=== PATIENT | female | born 1970 | race Caucasian/White ===

== ENCOUNTER 2017-05-16 23:46 | Emergency (ER) | payer BC ==
[2017-05-17 00:20] LABS: BASO % 0.3 % (0-6); EOS % 2.4 % (0-6); GRAN % 62.1 % (47-80); HEMATOCRIT 41.8 % (35.0-47.0); HEMOGLOBIN 13.8 gm/dl (11.6-16.0); MEAN CELL VOLUME 90.5 fl (81-97); MEAN CORPUSCULAR HEMOGLOBIN 29.9 pg (27-33); MEAN PLATELET VOLUME 10.4 fl (7.4-10.4); MONO % 5.2 % (0-9); PLATELET COUNT 201 K/uL (130-400); RED BLOOD COUNT 4.62 M/uL (3.80-5.40); RED CELL DISTRIBUTION WIDTH 13.6 % (11.5-14.5); WHITE BLOOD COUNT W/O DIFF 9.2 K/uL (4.2-12.2)
[2017-05-17] MEDS: 0.9 % SODIUM CHLORIDE 1,000 ML BAG IV ONE (00:23)
[2017-05-17] MEDS: ONDANSETRON HCL IV 4 MG/2 ML VIAL IV ONE (00:24)
[2017-05-17] MEDS: HYDROMORPHONE HCL 1MG/ML **SYRINGE IVP ONE ×2 (00:25→02:27)
--- NOTE | 2017-05-17 00:29 | Emergency Department Record ---
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 pt has nausea but no v/c/d MD Complaint: Abdominal pain Onset/Timin -: Minutes(s) Location: Epigastric Radiation: Back Quality: Sharp Improves With: Nothing Worsens With: Nothing Associated Symptoms: Denies other symptoms - Related Data Patient : No Previous Rx's Medication Instructions Recorded Hydrocodone/Acetaminophen [[place] 1 each PO QID #10 tablet 05/17/17 5-325 Tablet] Allergies Allergy/AdvReac Type Severity Reaction Status Date / Time No Known Drug Allergies Allergy Verified 05/16/17 23:51 Travel Screening - Travel/Exposure Within Last 30 Days Have you traveled within the last 30 days?: No - Travel Symptoms Symptom Screening: None Review of Systems Reviewed: No additional complaints except as noted below Constitutional: Reports: As per HPI. Denies: Chills, Fever, Malaise, Night sweats, Weakness, Weight change Eyes: Reports: As per HPI. Denies: Eye discharge, Eye pain, Photophobia, Vision change ENT: Reports: As per HPI. Denies: Congestion, Dental pain, Ear pain, Epistaxis , Hearing loss, Throat pain Respiratory: Reports: As per HPI. Denies: Cough, Dyspnea, Hemoptysis, Stridor, Wheezes Cardiovascular: Reports: As per HPI. Denies: Arrhythmia, Chest pain, Dyspnea on exertion, Edema, Murmurs, Orthopnea, Palpitations, Paroxysmal nocturnal dyspnea, Rheumatic Fever, Syncope Endocrine: Reports: As per HPI. Denies: Fatigue, Heat or cold intolerance, Polydipsia, Polyuria Gastrointestinal: Reports: As per HPI. Denies: Abdominal pain, Constipation, Diarrhea, Hematemesis, Hematochezia, Melena, Nausea, Vomiting Genitourinary: Reports: As per HPI. Denies: Abnormal menses, Discharge, Dyspareunia, Dysuria, Frequency, Hematuria, Incontinence, Retention, Urgency Musculoskeletal: Reports: As per HPI. Denies: Arthralgia, Back pain, Gout, Joint swelling, Myalgia, Neck pain Skin: Reports: As per HPI. Denies: Bruising, Change in color, Change in hair/ nails, Lesions, Pruritus, Rash Neurological: Reports: As per HPI. Denies: Abnormal gait, Confusion, Headache, Numbness, Paresthesias, Seizure, Tingling, Tremors, Vertigo, Weakness Psychiatric: Reports: As per HPI. Denies: Anxiety, Auditory hallucinations, Depression, Homicidal thoughts, Suicidal thoughts, Visual hallucinations Hematological/Lymphatic: Reports: As per HPI. Denies: Anemia, Blood Clots, Easy bleeding, Easy bruising, Swollen glands Past Medical History - SOCIAL HISTORY Smoking Status: Never smoker - RESPIRATORY Hx Respiratory Disorders: No - CARDIOVASCULAR Hx Cardio Disorders: No - NEURO Hx Neuro Disorders: No - GI Hx GI Disorders: No - Hx Genitourinary Disorders: No - ENDOCRINE Hx Endocrine Disorders: No - MUSCULOSKELETAL Hx Musculoskeletal Disorders: No - PSYCH Hx Psych Problems: No - HEMATOLOGY/ONCOLOGY Hx Hematology/Oncology Disorders: No Family Medical History Any Significant Family History?: Yes Hx Heart Disease: Father Physical Exam - General General Appearance: Alert, Oriented x3, Cooperative, Moderate distress - Head Head exam: Normal inspection - Eye Eye exam: Normal appearance, PERRL, EOMI Pupils: Normal accommodation - ENT ENT exam: Normal exam, Mucous membranes moist, Normal external ear exam, Normal orophraynx Ear exam: Normal external inspection. negative: External canal tenderness Nasal Exam: Normal inspection. negative: Discharge, Sinus tenderness Mouth exam: Normal external inspection, Tongue normal Teeth exam: Normal inspection. negative: Dental caries Throat exam: Normal inspection. negative: Tonsillar erythema, Tonsillar exudate - Neck Neck exam: Normal inspection, Full ROM. negative: Tenderness - Respiratory Respiratory exam: Normal lung sounds bilaterally. negative: Respiratory distress - Cardiovascular Cardiovascular Exam: Regular rate, Normal rhythm, Normal heart sounds - GI/Abdominal GI/Abdominal exam: Soft, Normal bowel sounds, Tenderness - Rectal Rectal exam: Deferred - exam: Deferred - Extremities Extremities exam: Normal inspection, Full ROM, Normal capillary refill. negative: Tenderness - Back Back exam: Reports: Normal inspection, Full ROM. Denies: Muscle spasm, Rash noted, Tenderness - Neurological Neurological exam: Alert, CN II-XII intact, Normal gait, Oriented X3 - Psychiatric Psychiatric exam: Normal affect, Normal mood - Skin Skin exam: Dry, Intact, Normal color, Warm Course Vital Signs 05/16/17 05/16/17 23:50 23:52 Temperature 98.0 F Pulse Rate 65 Respiratory 18 Rate Blood Pressure 112/78 [Left Arm] Pulse Ox 100 - Reevaluation(s) Reevaluation #1: 05/17/17 02:22 pt feels better. she does not want to be hospitalized and wants to try it at home. pt was told she may return at any time and pt was told to return for ultrasound thursday. Medical Decision Making - Lab Data Result diagrams: 05/17/17 00:10 05/17/17 00:10 Lab Results 05/17/17 Range/Units 00:10 WBC 9.2 (4.2-12.2) K/uL RBC 4.62 (3.80-5.40) M/uL Hgb 13.8 (11.6-16.0) gm/dl Hct 41.8 (35.0-47.0) % MCV 90.5 (81-97) fl MCH 29.9 (27-33) pg MCHC 33.0 (32-36) g/dl RDW 13.6 (11.5-14.5) % Plt Count 201 (130-400) K/uL MPV 10.4 (7.4-10.4) fl Gran % 62.1 (47-80) % Lymphocytes % 30.0 (16-45) % Monocytes % 5.2 (0-9) % Eosinophils % 2.4 (0-6) % Basophils % 0.3 (0-6) % Disposition Disposition: Discharge Clinical Impression: Pancreatitis Qualifiers: Chronicity: acute Pancreatitis type: unspecified pancreatitis type Acute pancreatitis complication: unspecified Qualified Code(s): K85.90 - Acute pancreatitis without necrosis or infection, unspecified Disposition: Home, Self-Care Instructions: Pancreatitis (ED) Additional Instructions: follow up thursday at 7:30 am. nothing by mouth after midnight Thursday night. return sooner if worse. Prescriptions: Hydrocodone/Acetaminophen [[place] 5-325 Tablet] 1 each PO QID #10 tablet Forms: Patient Portal Access, Return to Work/School Quality - Quality Measures Quality Measures: N/A - Blood Pressure Screening Does Patient Have Any of the Following: No Blood Pressure Classification: Normal BP Reading Systolic Measurement: 117 Diastolic Measurement: 68 Screening for High Blood Pressure: < Normal BP, F/U Not Required > [G2805]
[2017-05-17 00:45] LABS: ALB/GLOB RATIO 1.4 (1.1-1.8); ALBUMIN 3.9 g/dL (4.0-5.0); ALKALINE PHOSPHATASE 90 U/L (35-104); ALT/SGPT 16 U/L (<33); AST/SGOT 23 U/L (10.0-35.0); BLOOD UREA NITROGEN 10 mg/dL (6-20); CREATININE 0.7 mg/dL (0.5-0.9); EST GLOMERULAR FILTRATION RATE > 60 mL/min; GLUCOSE,RANDOM 120 mg/dL (74-109); TOTAL PROTEIN 6.6 g/dL (6.6-8.7)
[2017-05-17 00:59] LABS: LIPASE 364 U/L (13-60)
[2017-05-17 02:04] LABS: URINE APPEARANCE CLEAR; URINE BILIRUBIN NEGATIVE (NEGATIVE); URINE BLOOD NEGATIVE (NEGATIVE); URINE COLOR YELLOW; URINE GLUCOSE (UA) NEGATIVE (NEGATIVE); URINE KETONE TRACE (NEGATIVE); URINE LEUKOCYTE ESTERASE NEGATIVE (NEGATIVE); URINE NITRITE NEGATIVE (NEGATIVE); URINE PROTEIN TRACE (NEGATIVE)
[2017-05-17] MEDS: HYDROCODONE/APAP 5/325MG TABLET PO ONE (02:34)
--- NOTE | 2017-05-17 13:03 | CT SCAN REPORT ---
EXAM: CT SCAN ABDOMEN/PELVIS W CONTRAST HISTORY: ABDOMINAL PAIN/EPIGASTRIC PAIN. COMPARISON: 06/02/13. TECHNIQUE: Routine postcontrast CT images of the abdomen and pelvis were obtained. Amount and type of IV contrast in the medical record. FINDINGS: Visualized lung bases unremarkable. There are a few tiny stones within the gallbladder. No biliary ductal dilation. Periportal edema noted within the liver, which is otherwise unremarkable. There is mild peripancreatic edematous change suggesting acute pancreatitis. Spleen, adrenals, and kidneys are unremarkable. There is a mild hiatal hernia. 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 Note is made of a duodenal diverticulum emanating off the medial aspect of the second portion of the duodenum. Bowel is normal in caliber. Appendix has a normal appearance. Mild volume of stool within the colon. Bladder unremarkable. There are small ovarian cysts bilaterally. No abdominal or pelvic lymphadenopathy. Aorta enhances normally with contrast. No ascites. Abdominal wall soft tissues are unremarkable. No acute osseous abnormality. There is lumbar spondylosis with degenerative disc disease, most pronounced at L5-S1, and moderate facet hypertrophy L4-5 and L5-S1. IMPRESSION: 1. PERIPANCREATIC INFLAMMATORY CHANGE FAVORING ACUTE PANCREATITIS. ALTERNATIVELY, THERE IS A MODERATE DUODENAL DIVERTICULUM WITHIN THIS REGION AND DUODENITIS POSSIBLE, THOUGH FELT TO BE LESS LIKELY. 2. SUGGESTION OF CHOLELITHIASIS. 3. SMALL HIATAL HERNIA. JOB NUMBER: [id number] [facility]
== END 2017-05-17 02:58 | disposition home or self-care (01) ==
LOC: ER 23:46
DX: K85.90 Acute pancreatitis without necrosis or infection, unspecified (principal)
CPT/HCPCS: 99284 ×2; 96376; 96374; 96375; 83605; 83690; 85025; 80053; 81003; 74177; Q9967; J2405; J1170; J7030

== ENCOUNTER 2017-05-18 07:23 | Emergency (ER) | payer BC ==
[2017-05-18] MEDS ORDERED: 0.9 % SODIUM CHLORIDE 1,000 ML BAG IV ONE (07:31)
--- NOTE | 2017-05-18 07:37 | Emergency Department Record ---
History of Present Illness - General Stated Complaint: ULTRASOUND Time Seen by Provider: 05/18/17 07:31 Source: Patient, Family Mode of Arrival: Ambulatory Limitations: No limitations - History of Present Illness Initial Comments: 46 yo female returns to the ED for evaluation for abdominal pain. The patient was in the ED May 17 for upper abdominal pain. A CT scan at that time was positive for mild peripancreatic edema with DDX of pancratitis or duodenitis. Questionable gall stones at that time. Her Lipase was elevated then at 364. She states her pain is now 1/10. She has little appetite. Her pain is well controlled but she is apprehensive about eating. She had a gastric sleeve in [address] [facility] [address] Dia. She had a prior hysterectomy. MD Complaint: Abdominal pain -: Days(s) (2) Location: Epigastric, RUQ Migration to: RUQ Severity: Mild Severity scale (1-10): 1 Quality: Aching Consistency: Intermittent Improves With: Other (Not eating) Worsens With: Eating Associated Symptoms: Anorexia - Related Data Patient : No Previous Rx's Medication Instructions Recorded Hydrocodone/Acetaminophen [[place] 1 each PO QID #10 tablet 05/17/17 5-325 Tablet] Allergies Allergy/AdvReac Type Severity Reaction Status Date / Time No Known Drug Allergies Allergy Verified 05/16/17 23:51 Review of Systems Constitutional: Denies: Chills, Fever, Malaise, Weakness Eyes: Denies: Eye discharge ENT: Denies: Congestion, Throat pain Respiratory: Denies: Cough, Dyspnea, Hemoptysis, Wheezes Cardiovascular: Denies: Chest pain, Syncope Endocrine: Denies: Fatigue Gastrointestinal: Reports: Abdominal pain, Vomiting. Denies: Diarrhea Genitourinary: Denies: Dysuria, Urgency Musculoskeletal: Denies: Arthralgia, Back pain, Myalgia, Neck pain Skin: Denies: Bruising, Change in color, Rash Neurological: Denies: Confusion, Headache, Weakness Psychiatric: Denies: Anxiety Hematological/Lymphatic: Denies: Blood Clots, Easy bleeding, Easy bruising, Swollen glands Past Medical History - SOCIAL HISTORY Smoking Status: Never smoker - RESPIRATORY Hx Respiratory Disorders: No - CARDIOVASCULAR Hx Cardio Disorders: No - NEURO Hx Neuro Disorders: No - GI Hx GI Disorders: No - Hx Genitourinary Disorders: No - ENDOCRINE Hx Endocrine Disorders: No - MUSCULOSKELETAL Hx Musculoskeletal Disorders: No - PSYCH Hx Psych Problems: No - HEMATOLOGY/ONCOLOGY Hx Hematology/Oncology Disorders: No Family Medical History Hx Heart Disease: Father Physical Exam - General General Appearance: Alert, Oriented x3, Cooperative, No acute distress Limitations: No limitations - Head Head exam: Normal inspection - Eye Eye exam: Normal appearance - ENT ENT exam: Normal exam Ear exam: Normal external inspection Nasal Exam: Normal inspection Mouth exam: Normal external inspection - Neck Neck exam: Normal inspection, Full ROM. negative: Tenderness - Respiratory Respiratory exam: Normal lung sounds bilaterally. negative: Respiratory distress - Cardiovascular Cardiovascular Exam: Regular rate, Normal rhythm, Normal heart sounds - GI/Abdominal GI/Abdominal exam: Soft, Normal bowel sounds. negative: Distended, Guarding, Rebound, Rigid - Rectal Rectal exam: Deferred - exam: Deferred - Extremities Extremities exam: Normal inspection, Full ROM, Normal capillary refill. negative: Tenderness - Back Back exam: Reports: Normal inspection, Full ROM. Denies: Muscle spasm, Rash noted, Tenderness - Neurological Neurological exam: Alert, Normal gait, Oriented X3 - Psychiatric Psychiatric exam: Normal affect, Normal mood - Skin Skin exam: Dry, Intact, Normal color, Warm Course - Reevaluation(s) Reevaluation #1: EMR reviewed from prior visit 05/18/17 07:38 05/18/17 08:29 The US was read as cholelithiasis without US evidence for acute cholecystitis. No bilary dilatation. 05/18/17 08:31 The CBC is normal at this time without acute changes The Lipase is 177 down from 364 05/18/17 08:33 The AST was 32, ALT 55, AlkPhos 76 with normal Bilirubin. 05/18/17 09:[address] Schwartz of general surgery We discussed the initial work up as well as today's tests The patient has very well controlled pain No acute changes in the labs with improved labs. He recommends follow up in one week to ensure the acute pancreatitis continues to calm down I discussed at length with the patient and mother diet, reasons to return and follow up plan with Dr Schwartz. A Consult for follow up was placed with Dr Schwartz 05/18/17 09:03 The patient requests the diagnosis be placed on her work release note as it is required by her company. Medical Decision Making - Lab Data Result diagrams: 05/18/17 07:45 05/18/17 07:45 Disposition Disposition: Discharge Clinical Impression: Gall stones Disposition: Home, Self-Care Condition: (1) Good Instructions: Biliary Colic (ED), Gallstones (ED) Additional Instructions: You will be called today for a follow up appointment with Dr Schwartz Immediately return to the ED if you have any pain, fever, vomiting Very low fat diet until you are seen by Dr Schwartz Referrals: Eliud Schwartz [DOCTOR OF OSTEOPATH] - [facility] Specialty Clinics [Provider Group] Forms: Patient Portal Access Time of Disposition: 09:00 Quality - Quality Measures Quality Measures: N/A - Blood Pressure Screening Does Patient Have Any of the Following: No Blood Pressure Classification: Pre-Hypertensive BP Reading Systolic Measurement: 123 Diastolic Measurement: 80 Screening for High Blood Pressure: < Pre-Hypertensive BP, F/U Documented > [ G8950] Pre-Hypertensive Follow-up Interventions: Referral to alternative/primary care provider.
[2017-05-18 07:55] LABS: BASO % 0.3 % (0-6); EOS % 3.9 % (0-6); GRAN % 73.4 % (47-80); HEMATOCRIT 39.3 % (35.0-47.0); LYMPH % 18.5 % (16-45); MEAN CELL VOLUME 90.3 fl (81-97); MEAN CORPUSCULAR HEMOGLOBIN 29.9 pg (27-33); MEAN CORPUSCULAR HGB CONC 33.1 g/dl (32-36); MEAN PLATELET VOLUME 9.9 fl (7.4-10.4); MONO % 3.9 % (0-9); PLATELET COUNT 157 K/uL (130-400); RED BLOOD COUNT 4.35 M/uL (3.80-5.40); RED CELL DISTRIBUTION WIDTH 13.4 % (11.5-14.5); WHITE BLOOD COUNT W/O DIFF 6.5 K/uL (4.2-12.2)
[2017-05-18 08:08] LABS: INR 0.94; PARTIAL THROMBOPLASTIN TIME 27.1 SECONDS (24.5-39.1); PROTHROMBIN TIME (PATIENT) 10.2 SECONDS (9.5-12.1)
[2017-05-18 08:16] LABS: BLOOD UREA NITROGEN 7 mg/dL (6-20); EST GLOMERULAR FILTRATION RATE > 60 mL/min; GLUCOSE,RANDOM 106 mg/dL (74-109)
[2017-05-18 08:31] LABS: ALB/GLOB RATIO 1.4 (1.1-1.8); ALBUMIN 3.6 g/dL (4.0-5.0); ALKALINE PHOSPHATASE 76 U/L (35-104); ALT/SGPT 55 U/L (<33); AST/SGOT 32 U/L (10.0-35.0); CREATININE 0.6 mg/dL (0.5-0.9); TOTAL PROTEIN 6.1 g/dL (6.6-8.7)
[2017-05-18 08:32] LABS: LIPASE 177 U/L (13-60)
--- NOTE | 2017-05-18 09:06 | ULTRASOUND REPORT ---
EXAM: ABDOMEN ULTRASOUND HISTORY: ACUTE RIGHT UPPER QUADRANT ABDOMINAL PAIN. TECHNIQUE: Real-time alex scale sonographic imaging of the abdomen was performed. Comparison: Abdomen CT 05/17/17. FINDINGS: The liver and spleen are not enlarged and appear homogeneous. No biliary dilatation. The common duct measures 1.4 mm in diameter, within normal limits. Multiple small mobile echogenic gallstones in the gallbladder. No gallbladder wall thickening or pericholecystic fluid. Sonographic Schultz's sign is negative. The kidneys are normal without mass, calculi, or hydronephrosis. The right kidney measures 11.8 x 3.9 x 4.7 cm and the left kidney measures 10.6 x 4.4 x 5.1 cm. The tail of the pancreas is not seen due to bowel gas. The remaining pancreas, abdominal aorta and IVC are unremarkable. IMPRESSION: CHOLELITHIASIS WITHOUT SONOGRAPHIC EVIDENCE OF ACUTE CHOLECYSTITIS. NO BILIARY DILATATION. JOB NUMBER: [id number] [facility]
== END 2017-05-18 09:14 | disposition home or self-care (01) ==
LOC: ER 07:23
DX: K80.20 Calculus of gallbladder without cholecystitis without obstruction (principal); R10.11 Right upper quadrant pain
CPT/HCPCS: 76700; 80053; 83690; 85025; 85610; 85730; 99284; J7030

== ENCOUNTER 2017-05-30 13:50 | Emergency (ER) | payer BC ==
[2017-05-30] MEDS ORDERED: ONDANSETRON HCL IV 4 MG/2 ML VIAL IV ONE (13:56)
[2017-05-30] MEDS ORDERED: 0.9 % SODIUM CHLORIDE 1,000 ML BAG IV ONE ×2 (13:56→14:53)
[2017-05-30] MEDS ORDERED: HYDROMORPHONE HCL 1MG/ML **SYRINGE IVP ONE (13:58)
--- NOTE | 2017-05-30 14:07 | Emergency Department Record ---
History of Present Illness - General Chief Complaint: Abdominal Pain Stated Complaint: ABD PAIN Time Seen by Provider: 05/30/17 13:56 Source: Patient, Family Mode of Arrival: Ambulatory Limitations: No limitations - History of Present Illness Initial Comments: 46 yo female presents with abdominal pain. The patient has a history of recent pancreatitis with gallstones. She improved and followed up with Dr Schwartz on . She has done very well as an outpatient without pain. She developed some pain just prior to arrival today for the first time. She took a [place] about 45 minutes ago. The pain has almost completely resolved at this time. No fevers. No current nausea. She has been compliant with a low fat diet. She elected with Dr Schwartz to set a surgery date for ThursdayJune 08 after . History of laparoscopic sleeve gastrectomy and hysterectomy. Complaint: Abdominal pain -: Minutes(s) Location: Epigastric Radiation: Epigastric Migration to: Epigastric Severity: Moderate Severity scale (1-10): 1 (currently) Quality: Aching Consistency: Now resolved Improves With: Other ([place]) Worsens With: Eating Context: Other (Known gallstones) Associated Symptoms: Denies other symptoms Treatments Prior to Arrival: Prescription analgesics - Related Data Previous Rx's Medication Instructions Recorded Hydrocodone/Acetaminophen [[place] 1 each PO QID #10 tablet 05/17/17 5-325 Tablet] Allergies Allergy/AdvReac Type Severity Reaction Status Date / Time No Known Drug Allergies Allergy Verified 05/30/17 13:59 Review of Systems Constitutional: Denies: Chills, Fever, Malaise, Weakness Eyes: Denies: Eye discharge ENT: Denies: Congestion, Throat pain Respiratory: Denies: Cough Cardiovascular: Denies: Chest pain, Palpitations, Syncope Endocrine: Denies: Fatigue Gastrointestinal: Reports: As per HPI, Abdominal pain, Nausea, Other (Now symptoms have resolved). Denies: Diarrhea, Vomiting Genitourinary: Denies: Dysuria Musculoskeletal: Denies: Arthralgia, Back pain, Myalgia, Neck pain Skin: Denies: Bruising, Change in color, Rash Neurological: Denies: Confusion, Weakness Psychiatric: Denies: Anxiety Hematological/Lymphatic: Denies: Blood Clots, Easy bleeding, Easy bruising, Swollen glands Past Medical History - SOCIAL HISTORY Smoking Status: Never smoker - RESPIRATORY Hx Respiratory Disorders: No - CARDIOVASCULAR Hx Cardio Disorders: No - NEURO Hx Neuro Disorders: No - GI Hx GI Disorders: Yes Hx Abdominal Pain: Yes (gallstones) Hx Hiatal Hernia: Yes (repaired) Hx Nausea/Vomiting: Yes Hx Pancreatitis: Yes (recently) Hx Wt Loss/Wt Gain: Yes (loss of 70lbs) - Hx Genitourinary Disorders: No Comment:: hyst - ENDOCRINE Hx Endocrine Disorders: No - MUSCULOSKELETAL Hx Musculoskeletal Disorders: No - PSYCH Hx Psych Problems: Yes Hx Anxiety: Yes (stress lately-been a bad year) - HEMATOLOGY/ONCOLOGY Hx Hematology/Oncology Disorders: Yes Hx Anemia: Yes (slightly) Family Medical History Hx Heart Disease: Father Physical Exam - General General Appearance: Alert, Oriented x3, Cooperative, No acute distress Limitations: No limitations - Head Head exam: Atraumatic, Normal inspection - Eye Eye exam: Normal appearance - ENT ENT exam: Normal exam, Mucous membranes moist Ear exam: Normal external inspection Nasal Exam: Normal inspection Mouth exam: Normal external inspection - Neck Neck exam: Normal inspection - Respiratory Respiratory exam: Normal lung sounds bilaterally. negative: Respiratory distress - Cardiovascular Cardiovascular Exam: Regular rate, Normal rhythm, Normal heart sounds - GI/Abdominal GI/Abdominal exam: Soft, Normal bowel sounds, Other (Very soft abdomen without tenderness). negative: Distended, Guarding, Rebound, Rigid, Tenderness - Rectal Rectal exam: Deferred - exam: Deferred - Extremities Extremities exam: Normal inspection - Back Back exam: Reports: Normal inspection. Denies: CVA tenderness (R), CVA tenderness (L) - Neurological Neurological exam: Alert, Oriented X3 - Psychiatric Psychiatric exam: Normal affect, Normal mood - Skin Skin exam: Dry, Intact, Normal color, Warm Course - Reevaluation(s) Reevaluation #1: The vitals were reviewed No acute changes The patient states her pain is essentially gone and no nausea She did agree to having labs checked to assess current liver and pancreas values. 05/30/17 14:12 05/30/17 14:32 The CBC and the UA are negative for acute changes 05/30/17 14:40 The labs were reviewed AST 54, ALT is 34 Lipase is 766. 05/30/17 14:53 I NELLA Schwartz He recommends a repeat CT scan with IV contrast to evaluate for pancreatic inflammation. 05/30/17 14:59 The Alk Phos and Bili are normal at 88 and 0.6 respectively 05/30/17 15:[address] scan was reviewed Near complete resolution of the pancreatic inflammation, no ductal dilatation, no stones, no pseudocyst I discussed the results with Dr Schwartz. The patient remains asymptomatic. The patient can be discharged home on liquids. She is to return to Dr Schwartz's clinic at 8m, NPO for surgery Thursday. The patient is very comfortable and prefers this plan vs admission until Thursday. She is aware of the proper diet and is aware of reasons for an immediate return if the pain returns. She will return Thursday morning NPO ready for surgery. 05/30/17 16:23 Medical Decision Making - Lab Data Result diagrams: 05/30/17 14:10 05/30/17 14:10 Disposition Disposition: Discharge Clinical Impression: Gall stones Pancreatitis Qualifiers: Chronicity: acute Pancreatitis type: other Acute pancreatitis complication: unspecified Qualified Code(s): K85.80 - Other acute pancreatitis without necrosis or infection Disposition: Home, Self-Care Condition: (1) Good Instructions: Pancreatitis (ED) Additional Instructions: Clear liquid diet until Thursday at Midnight You are to not have anything to eat or drink after midnight You are to return to the hospital at 8am to Dr Schwartz's surgery clinic for surgery later in the morning Nothing to eat or drink after midnight Thursday in preparation for surgery Return to the ER if the pain return prior to Thursday at 8am. Referrals: [facility] Specialty Clinics [Provider Group] Eliud Schwartz [DOCTOR OF OSTEOPATH] - Forms: Patient Portal Access Time of Disposition: 15:47 Quality - Quality Measures Quality Measures: N/A - Blood Pressure Screening Does Patient Have Any of the Following: No Blood Pressure Classification: Pre-Hypertensive BP Reading Systolic Measurement: 150 Diastolic Measurement: 88 Screening for High Blood Pressure: < Pre-Hypertensive BP, F/U Documented > [ G8950] Pre-Hypertensive Follow-up Interventions: Referral to alternative/primary care provider.
[2017-05-30 14:19] LABS: BASO % 0.4 % (0-6); GRAN % 63.6 % (47-80); HEMATOCRIT 40.8 % (35.0-47.0); HEMOGLOBIN 13.4 gm/dl (11.6-16.0); LYMPH % 27.6 % (16-45); MEAN CELL VOLUME 91.1 fl (81-97); MEAN CORPUSCULAR HEMOGLOBIN 29.9 pg (27-33); MEAN CORPUSCULAR HGB CONC 32.8 g/dl (32-36); MEAN PLATELET VOLUME 9.6 fl (7.4-10.4); MONO % 5.4 % (0-9); PLATELET COUNT 202 K/uL (130-400); RED BLOOD COUNT 4.48 M/uL (3.80-5.40); RED CELL DISTRIBUTION WIDTH 13.6 % (11.5-14.5); WHITE BLOOD COUNT W/O DIFF 7.9 K/uL (4.2-12.2)
[2017-05-30 14:30] LABS: BLOOD UREA NITROGEN 11 mg/dL (6-20); CREATININE 0.6 mg/dL (0.5-0.9); EST GLOMERULAR FILTRATION RATE > 60 mL/min; TOTAL PROTEIN 6.6 g/dL (6.6-8.7)
[2017-05-30 14:31] LABS: URINE APPEARANCE CLEAR; URINE BILIRUBIN NEGATIVE (NEGATIVE); URINE BLOOD NEGATIVE (NEGATIVE); URINE COLOR YELLOW; URINE GLUCOSE (UA) NEGATIVE (NEGATIVE); URINE KETONE NEGATIVE (NEGATIVE); URINE LEUKOCYTE ESTERASE NEGATIVE (NEGATIVE); URINE NITRITE NEGATIVE (NEGATIVE); URINE PROTEIN NEGATIVE (NEGATIVE)
[2017-05-30 14:32] LABS: GLUCOSE,RANDOM 120 mg/dL (74-109)
[2017-05-30 14:35] LABS: ALB/GLOB RATIO 1.4 (1.1-1.8); ALBUMIN 3.9 g/dL (4.0-5.0); ALKALINE PHOSPHATASE 88 U/L (35-104); ALT/SGPT 34 U/L (<33); AST/SGOT 54 U/L (10.0-35.0)
[2017-05-30 14:39] LABS: LIPASE 766 U/L (13-60)
--- NOTE | 2017-06-01 08:21 | CT SCAN REPORT ---
EXAM: CT SCAN OF THE ABDOMEN WITH CONTRAST HISTORY: EPIGASTRIC PAIN OFF AND ON FOR THE PAST TWO WEEKS. ACUTE PANCREATITIS. TECHNIQUE: Standard CT imaging of the abdomen was performed with intravenous contrast. 100 ml of Omnipaque 300 were administered. Comparison: 05/17/17. FINDINGS: The lung bases are clear. The liver, gallbladder, and biliary tree are normal. A small duodenal diverticulum is present. The previously noted peripancreatic inflammatory changes have nearly completely resolved. Only very minor residual inflammation is present surrounding the uncinate process. The appearance is consistent with resolving acute pancreatitis. There is no pancreatic ductal dilatation, mass, or pseudocyst. The spleen is mildly enlarged, but unchanged. There are no focal splenic abnormalities. The adrenal glands are normal. The kidneys and visualized portions of the ureters are unremarkable. The aorta is normal in caliber. There is no retroperitoneal lymphadenopathy. The patient is status post gastric sleeve procedure. There is a tiny hiatal hernia. The visualized large and small bowel loops are normal. There is no pneumoperitoneum or ascites. IMPRESSION: 1. NEAR COMPLETE RESOLUTION OF THE PREVIOUSLY NOTED PERIPANCREATIC INFLAMMATORY CHANGES. ONLY VERY MINOR RESIDUAL INFLAMMATION IS PRESENT SURROUNDING THE UNCINATE PROCESS. 2. NO NEW INTRAABDOMINAL ABNORMALITY. 3. MILD SPLENOMEGALY. 4. SMALL HIATAL HERNIA. 5. STATUS POST GASTRIC SLEEVE PROCEDURE. JOB NUMBER: [id number] [facility]
== END 2017-05-30 17:33 | disposition home or self-care (01) ==
LOC: ER 13:50
DX: K80.80 Other cholelithiasis without obstruction (principal); K85.80 Other acute pancreatitis without necrosis or infection
CPT/HCPCS: 99284 ×2; 96360; 83690; 85025; 80053; 81003; 74160; Q9967; 74182; J7030

== ENCOUNTER 2017-06-01 07:42 | Day surgery (SDC) | payer BC ==
[2017-06-01] MEDS ORDERED: PROPOFOL 10 MG/ML VIAL IV ONE (07:43)
[2017-06-01] MEDS ORDERED: SCOPOLAMINE 1 PATCH TDSY TD ONE (07:43)
[2017-06-01] MEDS ORDERED: SUGAMMADEX SODIUM 200 MG/2 ML VIAL IV ONE (07:43)
[2017-06-01] MEDS ORDERED: BUPIVACAINE 0.25% W/EPI MPF 30ML VIAL IVP ONE (07:43)
[2017-06-01] MEDS ORDERED: KETOROLAC 30 MG/ML VIAL IVP ONE (07:43)
[2017-06-01] MEDS ORDERED: ROCURONIUM BROMIDE 50MG/5ML VIAL IV ONE (07:43)
[2017-06-01] MEDS ORDERED: MIDAZOLAM HCL 2MG/2ML VIAL IV ONE (07:43)
[2017-06-01] MEDS ORDERED: LIDOCAINE 2% MDV (20MG/ML) 20ML VIAL IV ONE (07:43)
[2017-06-01] MEDS ORDERED: ONDANSETRON HCL IV 4 MG/2 ML VIAL IVP ONE (07:43)
[2017-06-01] MEDS ORDERED: DEXAMETHASONE 4 MG/ML 1ML VIAL IVP ONE (07:43)
[2017-06-01] MEDS ORDERED: FENTANYL PF 100MCG/2ML VIAL IV ONE (07:43)
[2017-06-01] MEDS ORDERED: SEVOFLURANE 250 ML INH ONE (07:43)
[2017-06-01 11:36] LABS: BASO % 0.5 % (0-6); EOS % 3.1 % (0-6); GRAN % 67.3 % (47-80); HEMATOCRIT 39.6 % (35.0-47.0); LYMPH % 24.4 % (16-45); MEAN CELL VOLUME 91.2 fl (81-97); MEAN CORPUSCULAR HGB CONC 32.8 g/dl (32-36); MEAN PLATELET VOLUME 9.5 fl (7.4-10.4); MONO % 4.7 % (0-9); PLATELET COUNT 194 K/uL (130-400); RED BLOOD COUNT 4.34 M/uL (3.80-5.40); RED CELL DISTRIBUTION WIDTH 13.5 % (11.5-14.5); WHITE BLOOD COUNT W/O DIFF 6.4 K/uL (4.2-12.2)
[2017-06-01 11:47] LABS: BLOOD UREA NITROGEN 9 mg/dL (6-20); CREATININE 0.6 mg/dL (0.5-0.9); EST GLOMERULAR FILTRATION RATE > 60 mL/min; GLUCOSE,RANDOM 88 mg/dL (74-109)
--- NOTE | 2017-06-02 12:41 | Operative Note ---
DATE OF SURGERY: 06/01/2017 Surgeon: Eliud Schwartz DO PREOPERATIVE DIAGNOSIS: Gallstone pancreatitis. POSTOPERATIVE DIAGNOSIS: Gallstone pancreatitis. OPERATION: Laparoscopic cholecystectomy. Indication: The patient is a 46-year-old female who was admitted about a month ago for gallstone pancreatitis. On imaging she had fairly extensive peripancreatic inflammation requiring hospitalization. She did recover from this and I saw her in consultation for subsequent cholecystectomy. Before her elective surgery, she was seen back in the hospital with ongoing discomfort. At the time repeat imaging showed almost resolution of her prior peripancreatic inflammation. There was no pseudocyst formation, necrosis, or other. PROCEDURE: Therefore, consent was signed and questions answered. She was taken to the operating room and placed in a supine position. General anesthesia was administered per the department of anesthesia. We did discuss cholecystectomy; risks, benefits, and alternatives prior. Risks include but are not limited to bleeding, infection, acute or chronic pain, recurrence, injury to bile duct, bile leak, possibility that she could get pancreatitis in the future. She understood this fully. She had undergone a prior laparoscopic gastric sleeve and lost a decent amount of weight. The infraumbilical region was then anesthetized with a total of 5 mL of 0.25% Sensorcaine with epinephrine. A 2 cm infraumbilical incision was made. This was carried down to the anterior rectus fascia. This was incised. Archana clamps were placed on the fascial edges and brought up into the wound. Stay sutures of 0 Vicryl were placed. The posterior rectus sheath was identified and incised. The peritoneal cavity was entered bluntly. At this time, a 10 mm blunt Rosa port was placed. Adequate pneumoperitoneum was established. Under direct visualization, additional 5 mm epigastric and two 5 mm right subcostal ports were placed. The patient was then rotated into steep reverse Trendelenburg, rotation to left. There were postop changes off to her left mid abdomen. The gallbladder was identified. This was lifted anteriorly. There were dense omental adhesions which were attached to the gallbladder. These were swept away bluntly. Further cephalad and lateral retraction applied to the gallbladder. The hepatocystic triangle was then thoroughly dissected out. Did release the distal half of the gallbladder from the cystic plate elongating our retrocystic space. The cystic duct and cystic artery were clearly identified. There was no aberrant anatomy, no posterior ductal structures. Each one was doubly clipped and cut in a standard fashion. The gallbladder was then taken off the liver bed with the Donald harmonic. This was extracted infraumbilically. Right upper quadrant was then rechecked and found to be hemostatic. No bleeding. No bile leak. No bowel injury noted. The patient was leveled out. The pneumoperitoneum was released. All ports were removed. The fascia was closed with 0 Vicryl in a [id number] fashion. The skin at all ports was closed with 4-0 Vicryl. She was taken to the recovery room in satisfactory condition. FINDINGS AT THE TIME OF SURGERY: Chronic cholecystitis. CC: JAYLAN Hamilton
[2017-06-08] MEDS ORDERED: ACETAMINOPHEN 1,000 MG/100 ML BTL IV ONE (06:00)
[2017-06-08] MEDS ORDERED: FAMOTIDINE 20MG TABLET PO ONE (06:00)
[2017-06-08] MEDS ORDERED: MECLIZINE 25 MG TABLET PO ONE (06:00)
[2017-06-08] MEDS ORDERED: METOCLOPRAMIDE 10 MG TABLET PO ONE (06:00)
== END 2017-06-01 16:35 | disposition home or self-care (01) ==
LOC: SUR 07:42
PROVIDERS: ATTEND Surgery
DX: K80.10 Calculus of gallbladder with chronic cholecystitis without obstruction (principal)
CPT/HCPCS: 85025; 80048; 47562; 00790; J1885; J2405; J3010; J3490

== ENCOUNTER 2018-08-10 22:18 | Emergency (ER) | payer BC ==
[2018-08-10] MEDS ORDERED: ACETAMINOPHEN 500 MG TABLET PO ONE (22:29)
[2018-08-10] MEDS ORDERED: KETOROLAC 30 MG/ML VIAL IVP ONE (22:29)
[2018-08-10] MEDS ORDERED: 0.9 % SODIUM CHLORIDE 1000ML 1,000 ML IV SCH (22:30)
--- NOTE | 2018-08-10 22:34 | Emergency Department Record ---
History of Present Illness - General Chief complaint: Flu Like Symptoms Stated complaint: FLU/FEVER OVER 100 6 days Time Seen by Provider: 08/10/18 22:20 Source: Patient Mode of Arrival: Ambulatory Limitations: No limitations - History of Present Illness Initial comments: 48 yo female presents to ED for evaluation of continued fever symptoms, body aches, and difficultly in breathing after being diagnosed with influenza A 6 days ago. Patient denies history of asthma, COPD. Patient denies flank pain or dysuria symptoms, denies abdominal pain, nausea, and vomiting. Patient has been taking Tylenol and cold medicine for her symptoms, cannot take Ibuprofen due to gastric bypass. MD Complaint: Generalized weakness Onset/Timin -: Days(s) Location: Generalized Severity: Moderate Quality: Aching Consistency: Constant Improves with: None Worsens with: None Associated Symptoms: Fever/chills, Myalgias, Shortness of breath - Christen Coma Scale Eye Response: (4) Open spontaneously Motor Response: (6) Obeys commands Verbal Response: (5) Oriented Christen Total: 15 - Related Data Previous Rx's Medication Instructions Recorded Doxycycline Hyclate 100 mg PO BID #18 tab.dr 08/10/18 Albuterol Sulfate [Proair Hfa] 1 - 2 puff IH .EVERY 4-6 HOURS PRN 08/11/18 #1 inhaler Allergies Allergy/AdvReac Type Severity Reaction Status Date / Time Oral NSAIDs AdvReac Avoid due Uncoded 08/10/18 22:29 to Gastric Bypass Review of Systems Constitutional: Reports: Chills, Fever. Denies: Malaise, Night sweats Eyes: Denies: Eye discharge, Eye pain ENT: Reports: Congestion. Denies: Ear pain, Epistaxis Respiratory: Reports: Cough, Dyspnea Cardiovascular: Reports: Dyspnea on exertion. Denies: Chest pain, Edema Endocrine: Reports: Fatigue. Denies: Heat or cold intolerance Gastrointestinal: Denies: Abdominal pain, Nausea, Vomiting Genitourinary: Denies: Dysuria, Incontinence, Retention Musculoskeletal: Reports: Myalgia. Denies: Arthralgia, Back pain, Gout, Joint swelling Skin: Denies: Bruising, Change in color, Change in hair/nails, Rash Neurological: Denies: Abnormal gait, Confusion, Headache, Seizure Psychiatric: Denies: Anxiety Hematological/Lymphatic: Denies: Anemia, Blood Clots Past Medical History - SOCIAL HISTORY Smoking Status: Never smoker - RESPIRATORY Hx Respiratory Disorders: No - CARDIOVASCULAR Hx Cardio Disorders: No - NEURO Hx Neuro Disorders: No - GI Hx GI Disorders: Yes Hx Abdominal Pain: Yes (gallstones) Hx Hiatal Hernia: Yes (repaired) Hx Nausea/Vomiting: Yes Hx Pancreatitis: Yes (recently) Hx Wt Loss/Wt Gain: Yes (loss of 70lbs) - Hx Genitourinary Disorders: No Comment:: hyst - ENDOCRINE Hx Endocrine Disorders: No - MUSCULOSKELETAL Hx Musculoskeletal Disorders: No - PSYCH Hx Psych Problems: Yes Hx Anxiety: Yes (stress lately-been a bad year) - HEMATOLOGY/ONCOLOGY Hx Hematology/Oncology Disorders: Yes Hx Anemia: Yes (slightly) Family Medical History Hx Heart Disease: Father Physical Exam - General General Appearance: Alert, Oriented x3, Cooperative, Moderate distress Limitations: No limitations - Head Head exam: Atraumatic, Normocephalic, Normal inspection Head exam detail: negative: Abrasion, Contusion, Ulloa's sign, General tenderness, Hematoma, Laceration - Eye Eye exam: Normal appearance. negative: Conjunctival injection, Periorbital swelling, Periorbital tenderness, Scleral icterus - ENT Ear exam: negative: Auricular hematoma, Auricular trauma Nasal Exam: negative: Active bleeding, Discharge, Dried blood, Foreign body Mouth exam: negative: Drooling, Laceration, Muffled voice, Tongue elevation - Neck Neck exam: Normal inspection. negative: Meningismus, Tenderness - Respiratory Respiratory exam: Decreased breath sounds (Bases bilaterally). negative: Rales , Respiratory distress, Rhonchi, Stridor - Cardiovascular Cardiovascular Exam: Normal rhythm, Normal heart sounds, Tachycardia - GI/Abdominal GI/Abdominal exam: Soft. negative: Rebound, Rigid, Tenderness - Rectal Rectal exam: Deferred - exam: Deferred - Extremities Extremities exam: Normal inspection. negative: Calf tenderness, Pedal edema, Tenderness - Back Back exam: Denies: CVA tenderness (R), CVA tenderness (L) - Neurological Neurological exam: Alert, Normal gait, Oriented X3 - Psychiatric Psychiatric exam: Normal affect, Normal mood - Skin Skin exam: Normal color. negative: Abrasion Type of lesion: negative: abrasion Course Vital Signs 08/10/18 22:28 Temperature 102.6 F H Pulse Rate [ 120 H Pulse Ox Probe] Respiratory 28 H Rate Blood Pressure 112/72 [Left Arm] Pulse Ox 91 L - Reevaluation(s) Reevaluation #1: 08/10/18 23:18 Laboratory studies were reviewed and are grossly unremarkable for an acute process. CXR: Probable hazy infiltrates bases bilaterally. Will initiate Zithromax and Rocephin here in the ED and reassess vital when infusion is complete. Patient agrees with the plan of care as discussed. Reevaluation #2: 08/10/18 23:51 Vitals were reassessed: Pulse 94 Biox 93% Temperature 99.6. Patient's Rocephin has completed infusing, and the patient appears stable for discharge at this time on Doxycycline as directed. Medical Decision Making - Lab Data Result diagrams: 08/10/18 22:46 08/10/18 22:46 Disposition Disposition: Discharge Clinical Impression: CAP (community acquired pneumonia) Qualifiers: Laterality: unspecified laterality Qualified Code(s): J18.9 - Pneumonia, unspecified organism Disposition: Home, Self-Care Condition: (2) Stable Instructions: Community Acquired Pneumonia (ED) Additional Instructions: Return to ED if your symptoms worsen or if you have any concerns. Doxycycline as directed. Follow-up with your family doctor in 3-5 days as directed. Prescriptions: Albuterol Sulfate [Proair Hfa] 1 - 2 puff IH .EVERY 4-6 HOURS PRN #1 inhaler PRN Reason: Difficulty In Breathing Doxycycline Hyclate 100 mg PO BID #18 tab.dr Forms: Patient Portal Access Time of Disposition: 23:52 Quality - Quality Measures Quality Measures: N/A - Blood Pressure Screening Does Patient Have Any of the Following: No Blood Pressure Classification: Normal BP Reading Systolic Measurement: 106 Diastolic Measurement: 68 Screening for High Blood Pressure: < Normal BP, F/U Not Required > [G8783]
[2018-08-10 22:49] LABS: BASO % 0.3 % (0-6); EOS % 1.2 % (0-6); GRAN % 80.2 % (47-80); HEMATOCRIT 39.1 % (35.0-47.0); HEMOGLOBIN 12.7 gm/dl (11.6-16.0); LYMPH % 12.2 % (16-45); MEAN CELL VOLUME 89.5 fl (81-97); MEAN CORPUSCULAR HEMOGLOBIN 29.1 pg (27-33); MEAN CORPUSCULAR HGB CONC 32.5 g/dl (32-36); MEAN PLATELET VOLUME 8.9 fl (7.4-10.4); MONO % 6.1 % (0-9); PLATELET COUNT 238 K/uL (130-400); RED BLOOD COUNT 4.37 M/uL (3.80-5.40); RED CELL DISTRIBUTION WIDTH 13.3 % (11.5-14.5); WHITE BLOOD COUNT W/O DIFF 7.7 K/uL (4.2-12.2)
[2018-08-10 22:58] LABS: BLOOD UREA NITROGEN 8 mg/dL (6-20); CREATININE 0.7 mg/dL (0.5-0.9); EST GLOMERULAR FILTRATION RATE > 60 mL/min
[2018-08-10 22:59] LABS: TOTAL PROTEIN 7.2 g/dL (6.6-8.7)
[2018-08-10 23:01] LABS: GLUCOSE,RANDOM 109 mg/dL (74-109)
[2018-08-10 23:03] LABS: ALT/SGPT 12 U/L (<33)
[2018-08-10 23:04] LABS: ALB/GLOB RATIO 1.1 (1.1-1.8); ALBUMIN 3.8 g/dL (4.0-5.0); ALKALINE PHOSPHATASE 79 U/L (45-87); AST/SGOT 15 U/L (10.0-35.0)
[2018-08-10] MEDS ORDERED: CEFTRIAXONE 1GM/50ML BAG 1 GM/50 ML BAG IVPB ONE (23:24)
[2018-08-10] MEDS ORDERED: DOXYCYCLINE HYCLATE 100 MG CAPSULE PO ONE (23:24)
[2018-08-10] MEDS ORDERED: PROMETHAZINE W/CODEINE 10ML UD PO ONE (23:28)
--- NOTE | 2018-08-12 15:26 | RADIOLOGY REPORT ---
EXAM: CHEST, TWO VIEWS HISTORY: CHEST PAIN, DIFFICULTY BREATHING. TECHNIQUE: Two views of the chest were obtained. Comparison: Chest radiograph 08/03/18. FINDINGS: The cardiac silhouette is stable in size. Increased reticulonodular opacities throughout both lung bases. No confluent focal consolidation. No definable pleural fluid collection or visible pneumothorax. IMPRESSION: NEW BIBASILAR RETICULONODULAR PULMONARY OPACITIES; NONSPECIFIC, BUT COULD REPRESENT PROCESS SUCH INFECTIOUS/INFLAMMATORY BRONCHIOLITIS. JOB NUMBER: [id number] [facility]
== END 2018-08-11 00:13 | disposition home or self-care (01) ==
LOC: ER 22:18
DX: J18.9 Pneumonia, unspecified organism (principal); R06.02 Shortness of breath; R53.1 Weakness
CPT/HCPCS: 71046; 80053; 85025; 96365; 96375; 99284; J0696; J1885; J7030